=== PATIENT | male | born 1955 | race Caucasian/White ===

== ENCOUNTER 2019-01-20 07:20 | Day surgery (SDC) | payer BC ==
[~2019-01-20] VITALS: Ht 182.9 cm; Wt 96.6 kg
[~2019-01-20 07:20] MED LIST: ASPI325 PO; ASPI81CH PO; ASPIRIN; ATOR40TA PO; ATORVASTATIN; AZOR PO; Azor 5-40 MG T1 EACH PO; CHOL10002 PO; CLOP75 PO; Co Q-1010 MG PO; Coq-10100 MG PO; EZET10 PO; FISH OIL 1,0001 EAC1 PO; FISH1000 PO; Glucosamine Ch1 EAC4 PO; Hydrocodone-Ap1 EA23 PO; Isosorbide Mono30 MG PO; METO100ER PO; METO50ER PO; METOPROLOL; NITR.6SL SL; PANT40 PO; THERA1 EACH PO; TURMERIC PO
--- NOTE | 2019-01-20 08:23 | NUR ---
History, Chart, Medications and Allergies reviewed before start of procedure. Lungs clear T/O to Auscultation. Patient confirms NPO status and agrees with scheduled surgery. Surgical site prepped with 2% Chlorhexidine cloth wipe. Patient reports completing Chlorhexadine shower X2 prior to admission to hospital.
--- NOTE | 2019-01-20 09:50 | NUR ---
PT TO STEP. DENIES PAIN OR NAUSEA AT PRESENT. STERI STIPS IN PLACE.
--- NOTE | 2019-01-20 10:13 | NUR ---
NO CHANGE IN SURGERY SITE. ABDOMINAL BINDER PLACED ON PT.
--- NOTE | 2019-01-20 10:30 | NUR ---
WRITTEN AND VERBAL D/C INSTRICTIONS GIVEN TO PT WITH STATED UNDERSTANDING.
--- NOTE | 2019-01-20 10:48 | NUR ---
AT PT BEDSIDE AND GOING TO GET UP AND LET GET DRESSED, HEART RATE ON MONITOR BRIEFLY READ 32 BPM, AND QUICKLY INCREASED TO 50'S. WHILE PUTTING HEART MONITOR ON PATIERM HEART RATED AGAIN DROPPED TO 32 BPM, WITH QUICK RETURN TO HI 40'S-50'S. PT IS ASYMPTOMATIC. SPOKE WITH DR. DEVI. HE STATED TO CONTINUE TO MONITOR PT FOR 20 MINUTE AND ORDERS GIVEN FOR GLYCOPYRROLATE.
--- NOTE | 2019-01-20 11:10 | NUR ---
HEART RATE 48-50'S, CONTINUES TO BE ASYMPTOMATIC.
--- NOTE | 2019-01-20 11:18 | NUR ---
DR. DEVI UPDATED ON PT STATUS. HE STATES IT IS OK FOR PATIENT TO GO HOME.
== END 2019-01-20 22:42 | disposition home or self-care (01) ==
LOC: ORSCMMR 07:20 → ORD 08:45 → ORSCMMR 22:42
PROVIDERS: Surgery
PROC: 0WUF0JZ Supplement Abdominal Wall with Synthetic Substitute, Open Approach (ICD-10-PCS; principal; 2019-01-20 08:45)
DX: K42.9 Umbilical hernia without obstruction or gangrene (principal); I10 Essential (primary) hypertension; I25.10 Atherosclerotic heart disease of native coronary artery without angina pectoris; K21.9 Gastro-esophageal reflux disease without esophagitis; Z79.899 Other long term (current) drug therapy; Z79.82 Long term (current) use of aspirin
CPT/HCPCS: C1781; J0690; J1100; J1885; J2250; J2405; J2704; J3010; J7120

== ENCOUNTER 2022-02-03 01:33 | Observation (INO) | payer OTHER ==
[~2022-02-03] VITALS: Ht 182.9 cm; Wt 98.7 kg
[~2022-02-03 01:33] MED LIST changes: -CHOL10002 PO; +Pravachol40 MG PO; +VITAMIN D310 MC4 PO
[2022-02-03 01:58] LABS: BASOPHILS ABSOLUTE AUTO 0.09 K/mm3 (0.00-0.23); BASOPHILS PERCENT AUTO 1 % (0-2); EOSINOPHILS ABSOLUTE AUTO 0.27 K/mm3 (0.00-0.68); EOSINOPHILS PERCENT AUTO 3 % (0-6); Hematocrit 47.8 % (37.0-53.0); Hemoglobin 15.4 g/dL (13.5-17.5); IMMATURE GRAN ABSOLUTE AUTO 0.03 K/mm3 (0.00-0.10); IMMATURE GRAN PERCENT AUTO 0 % (0-1); LYMPHOCYTES ABSOLUTE AUTO 4.43 K/mm3 (0.84-5.20); LYMPHOCYTES PERCENT AUTO 45 % (21-46); MONOCYTES ABSOLUTE AUTO 0.85 K/mm3 (0.16-1.47); MONOCYTES PERCENT AUTO 9 % (4-13); Mean Corpuscular HGB 27.4 pg (26.0-34.0); Mean Corpuscular HGB Conc 32.2 g/dL (31.5-36.5); Mean Corpuscular Volume 85 fL (80-100); Mean Platelet Volume 11.2 fL (9.1-12.4); NEUTROPHILS ABSOLUTE AUTO 4.15 K/mm3 (1.96-9.15); NEUTROPHILS PERCENT AUTO 42 % (41-73); Platelet Count 192 K/mm3 (150-400); RDW Standard Deviation 46.5 fL (35.1-46.3); Red Blood Cell Count 5.63 M/mm3 (4.30-5.90); White Blood Cell Count 9.82 K/mm3 (4.00-11.30)
[2022-02-03 02:22] LABS: Albumin, Blood 4.1 g/dL (3.4-5.0); Albumin/Globulin Ratio 1.2 (0.8-1.8); Bilirubin, Total 0.4 mg/dL (0.1-1.0); Bun/Creatinine Ratio 18.6 (12.0-20.0); Calcium, Blood 9.5 mg/dL (8.5-10.1); Creatinine, Blood 0.97 mg/dL (0.60-1.20); Free Thyroxine 0.88 ng/dL (0.70-1.60); Globulin, Blood 3.4 g/dL (2.2-4.0); Magnesium, Blood 2.3 mg/dL (1.6-2.4); Potassium, Blood 3.7 mmol/L (3.5-5.5); Thyroid Stimulating Hormone 7.22 uIU/mL (0.360-4.800); Total Protein, Blood 7.5 g/dL (6.4-8.2)
[2022-02-03] MEDS ORDERED: ELIQUIS5 M2 PO (02:49)
[2022-02-03 05:06] LABS: CHOL/HDL RATIO 5.4; Cholesterol 193 mg/dL (50-200); HDL Cholesterol 36 mg/dL (>39); LDL/HDL RATIO Unable to Calculate; Low Density Lipoprotein Chol Unable to Calculate mg/dL (0-110); Triglycerides 481 mg/dL (30-160); Very Low Density Lipoprot Chol Unable to Calculate mg/dL (6-32)
[2022-02-03 05:45] LABS: International Normalized Ratio 1.13; Prothrombin Time Results 11.8 Sec (9.7-11.5)
--- NOTE | 2022-02-03 08:07 | NUR ---
PT ADMITTED FROM ER THIS AM 0610.PT REPORTS PAIN TO STERNUM UNCHANGED FROM ER. HEP GTT STARTED.
[2022-02-03] MEDS ORDERED: ROSU10TA PO (08:36)
[2022-02-03] MEDS ORDERED: TURMERIC500 M2 PO (08:38)
--- NOTE | 2022-02-03 11:27 | NUR ---
PT TO NUC MED
--- NOTE | 2022-02-03 12:37 | NUR ---
PT EATING MCDONALDS PER DIRECTION OF STRESS TEST PROTOCOL. EMERGENCY MEDICINE SPECIALIST IN ROOM TO SEE PT NOW. PT DENIES ANY NEEDS AT THIS TIME. HEPARIN INFUSING PER ORDERS.
--- NOTE | 2022-02-03 14:01 | NUR ---
resting in bed, denies any needs.
--- NOTE | 2022-02-03 15:06 | NUR ---
TURNED OVER CARE AND REPORT GIVEN TO CHANEL Roberts RN.
--- NOTE | 2022-02-03 16:20 | NUR ---
ASSUMED CARE OF PT , RESTING IN BED, DENIES ANY CP OR ANY DISCOMFORT, CONT. TO MONITOR FOR ANY CHANGES.
--- NOTE | 2022-02-03 18:37 | NUR ---
AMBULATED DOWN THE MÁRQUEZ, TOLERATED WELL, DENIES ANY SOB BUT CONT. TO C/O LIGHT CHEST PRESSURE AND PALPITATIONS, PT IN AFIB PER CLEANER AND POLISHER, TOLERATING CARDIAC DIET WELL, NO ACUTE CHANGES THIS AFTERNOON.
--- NOTE | 2022-02-03 23:15 | NUR ---
HEPARIN GTT: DR KINGSTON CALLED IN TO REPORT HE DC'D THE HEPARING GTT AND STARTED ELIQUIS. PT MED ORDERS REV W/, NEW ORDER FOR 1X DOSE OF IMDUR WILLIAMS ALSO REC. PT DR KANG IS STILL TO TAKE 0900 DOSE WELL.
--- NOTE | 2022-02-04 06:36 | NUR ---
PT VSS, HR AFLUTTER TRENDING 80'S PER TELE MONITOR. HR DID INCREASE UP TO 130 PER WHEN PT UP TO BATHROOM THIS AM. PT ASYMPTOMATIC; DOES CONT TO REP MID CHEST PRESSURE, DENIES CP/SOB. PT DENIED NEED FOR NITRO OR PAIN MEDS. HEPARIN GTT STOPPED, ELIQUIS STARTED. PT AMB INDEP, YUNIER WELL.
--- NOTE | 2022-02-04 12:46 | NUR ---
DISCHARGE PT EAGERLY WAITING FOR DISCHARGE PAPERS. HAS CALL OUT TO DR LICEA's OFFICE ALREADY. DECLINED W/C OUT & IS AMBULATING w/ SPOUSE & FRIEND OUT TO CAR.
== END 2022-02-04 12:40 | disposition home or self-care (01) ==
LOC: ER 01:33 → SURS 01:34
PROVIDERS: Student in an Organized Health Care Education/Training Program; ADMIT Family Medicine
DX: I48.20 Chronic atrial fibrillation, unspecified (principal); E78.5 Hyperlipidemia, unspecified; I25.119 Atherosclerotic heart disease of native coronary artery with unspecified angina pectoris; E78.1 Pure hyperglyceridemia; Z95.5 Presence of coronary angioplasty implant and graft; Z88.8 Allergy status to other drugs, medicaments and biological substances; Z79.01 Long term (current) use of anticoagulants; I11.0 Hypertensive heart disease with heart failure; I50.23 Acute on chronic systolic (congestive) heart failure; I08.3 Combined rheumatic disorders of mitral, aortic and tricuspid valves; I49.3 Ventricular premature depolarization
CPT/HCPCS: 36415; 71045; 78452; 80053; 80061; 83735; 84439; 84443; 84484; 85025; 85610; 85730; 93005; 93010; 93017; 93306; A9270; A9500; J1644; J2785

== ENCOUNTER 2022-02-25 08:30 | Day surgery (SDC) | payer OTHER ==
[~2022-02-25] VITALS: Ht 182.9 cm; Wt 100.0 kg
[~2022-02-25 08:30] MED LIST changes: +ELIQUIS5 M2 PO; +ROSU10TA PO; +TURMERIC500 M2 PO
[2022-02-25] MEDS ORDERED: Amiodarone HCl200 MG PO (08:54)
== END 2022-02-25 09:40 | disposition home or self-care (01) ==
LOC: MHTC 08:30
DX: I48.19 Other persistent atrial fibrillation (principal)
CPT/HCPCS: 92960; 93005; 93010; J2704; J7030

== ENCOUNTER 2022-10-22 07:49 | Day surgery (SDC) | payer OTHER ==
[~2022-10-22] VITALS: Ht 182.9 cm; Wt 100.9 kg
[~2022-10-22 07:49] MED LIST changes: +Amiodarone HCl200 MG PO; +ISOSORBIDE MONONITRATE 30 MG PO; -Isosorbide Mono30 MG PO
[2022-10-22] MEDS ORDERED: ISOSORBIDE MONO30 MG PO (08:36)
[2022-10-22] MEDS ORDERED: Crestor20 MG PO (08:40)
[2022-10-22] MEDS ORDERED: FISH OIL 1,2001 EAC7 PO (08:42)
[2022-10-22] MEDS ORDERED: NITR.6SL PO (08:43)
--- NOTE | 2022-10-22 16:00 | NUR ---
PT ANXIOUS TO DISCHARGE HOME. PT MEETING ALL GOALS. PT CLEARED THERAPY, TOLERATING PO, ABLE TO VOID AND CONFIRMED PT WAS ABLE TO EMPTY BLADDER WITH BLADDER SCANNER, PAIN MANAGED. MISHA PARIKH NOTIFIED THAT PT WISHED TO DISCHARGE HOME, OK PER MISHA TO FOR PT TO DISCHARGE HOME.
[2022-10-22] MEDS ORDERED: Percocet 5-3251 EACH PO (16:10)
--- NOTE | 2022-10-22 16:57 | NUR ---
PT ARRIVED TO THE ROOM AT APPROXIMATELY 1247.
--- NOTE | 2022-10-22 17:04 | NUR ---
DISCHARGE PT WAS PROVIDED WRITTEN AND VERBAL DISCHARGE INSTRUCTIONS BY CHANEL GOODWIN. PT ANXIOUS TO DISCHARGE HOME. PAIN MANAGED, PT ABLE TO VOID, PT CLEARED THERAPY AND PT TOLERATING PO PRIOR TO DISCHARGE. VSS PRIOR TO DISCHARGE. PT DC'D AT APPROXIMATELY 1639.
--- NOTE | 2022-10-22 17:46 | NUR ---
DC INSTRUCTIONS GIVEN AT DISCHARGE TO PT AND SIG. OTHER, VERALIZED UNDERSTANDING, PT INSTRUCTED TO CONT. USING WALKER AT HOME AT ALL TIMES DIRECTED WHEN AMBULATING, PT WAS NOTED GETTING UP FROM HIS CHAIR TO STAND WITHOUT HIS WALKER TO PUT ON HIS SHIRT, PT REMINDED TO USE WALKER FOR SAFETY.
== END 2022-10-22 16:39 | disposition home or self-care (01) ==
LOC: ORSCMMR 07:49 → SURS 12:31 → ORSCMMR 16:39 → ORD 10-29 07:30 → ORSCMMR 10-29 09:15 → ORD 10-29 10:00
PROVIDERS: Orthopaedic Surgery
PROC: 0SR90JZ Replacement of Right Hip Joint with Synthetic Substitute, Open Approach (ICD-10-PCS; principal; 2022-10-22 09:15)
DX: M16.11 Unilateral primary osteoarthritis, right hip (principal); I48.91 Unspecified atrial fibrillation; I25.2 Old myocardial infarction; K21.9 Gastro-esophageal reflux disease without esophagitis; Z79.899 Other long term (current) drug therapy
CPT/HCPCS: 27130; 0055T; 72170; 97116; 97161; 97530; A9270; C1776; J0171; J0690; J0735; J1100; J1885; J2250; J2370; J2405; J2704; J2795; J3010; J3370; J7120

== ENCOUNTER 2025-06-21 10:40 | Day surgery (SDC) | payer OTHER ==
[~2025-06-21] VITALS: Ht 182.9 cm; Wt 104.8 kg
[2025-06-21] VITALS (9 sets, daily range): BP systolic 116–154; BP diastolic 75–99
[~2025-06-21 10:40] MED LIST changes: +Crestor20 MG PO; +Crestor40 MG PO; +FISH OIL 1,2001 EAC7 PO; +FISH OIL PO; +GLUCHON PO; +HYDR1TAB94 PO; +ISOSORBIDE MONO30 MG PO; +NITR.6SL PO; +Percocet 5-3251 EACH PO
[2025-06-21] MEDS ORDERED: NS 1,000 ML IV ONE ×2 (12:12→12:26)
[2025-06-21] MEDS ORDERED: Heparin Sodium 1000 Units/ML 10ML MDV ONE (12:12)
[2025-06-21] MEDS ORDERED: NS 250 ML IV ONE (12:12)
[2025-06-21] MEDS ORDERED: Verapamil HCL 2.5 MG/ML 2ML Injection ONE (12:12)
[2025-06-21] MEDS ORDERED: Midazolam HCl 1MG / ML 2ML Vial ONE (12:26)
[2025-06-21] MEDS ORDERED: FentaNYL Citrate 50 MCG/ML 2 ML Injection ONE (12:26)
--- NOTE | 2025-06-21 13:03 | NUR ---
PATIENT ARRIVED BACK TO RECOVERY ROOM SITTING UPRIGHT IN RECLINER. RIGHT RADIAL TR BAND C/D/I SOFT/NONTENDER, NO EVIDENCE OF BLEEDING. VSS ON RA. PATIENT DENYING ANY PAIN. SPOUSE PRESENT AT BEDSIDE.
--- NOTE | 2025-06-21 13:30 | NUR ---
PATIENT SITTING UPRIGHT IN RECLINER, TOLERATING PO INTAKE WELL. RIGHT RADIAL TR BAND FULLY INFLATED. SITE C/D/I SOFT/NONTENDER, NO EVIDENCE OF BLEEDING. VSS ON RA.
--- NOTE | 2025-06-21 13:58 | NUR ---
INITIAL 2 CC OF AIR REMOVED FROM RIGHT RADIAL TR BAND. SITE C/D/I SOFT/NONTENDER, NO EVIDENCE OF BLEEDING. VSS ON RA. PATIENT SITTING COMFORTABLY IN RECLINER, DENYING ANY PAIN.
--- NOTE | 2025-06-21 14:15 | NUR ---
ALL AIR REMOVED FROM RIGHT RADIAL TR BAND. SITE C/D/I SOFT/NONTENDER, NO EVIDENCE OF BLEEDING. DISCHARGE INSTRUCTIONS REVIEWED WITH PATIENT. ALL QUESTIONS WERE ANSWERED. VSS ON RA.
--- NOTE | 2025-06-21 14:54 | NUR ---
PATIENT DISCHARGED HOME AT THIS TIME. ALL PATIENT BELONGINGS AND PAPERWORK LEFT WITH PATIENT. DISCHARGE INSTRUCTIONS REVIEWED WITH PATIENT AND SPOUSE. ALL QUESTIONS WERE ANSWERED. PIV REMOVED WITHOUT DIFFICULTY, CATHETER INTACT. TR BAND REMOVED, SITE C/D/I SOFT/NONTENDER, CLOTH DOT AND ARM BOARD IN PLACE. RADIAL SITE CARE INSTRUCTIONS REVIEWED. PATIENT WHEELED TO HOSPITAL ENTRANCE AND SPOUSE ABLE TO PROVIDE TRANSPORTATION HOME.
== END 2025-06-21 15:00 | disposition home or self-care (01) ==
LOC: MHTC 10:40
DX: I25.10 Atherosclerotic heart disease of native coronary artery without angina pectoris (principal); I48.0 Paroxysmal atrial fibrillation; I25.2 Old myocardial infarction; I10 Essential (primary) hypertension; E78.5 Hyperlipidemia, unspecified; Z79.899 Other long term (current) drug therapy; Z88.8 Allergy status to other drugs, medicaments and biological substances
CPT/HCPCS: 76937; 93458; 99152; C1769; C1887; C1894; J1644; J2250; J3010; J7030; J7050; Q9967